=== PATIENT | male | born 1980 | race American Indian/Alaskan Native ===

== ENCOUNTER 2021-01-30 15:12 | Emergency (ER) | payer OTHER ==
[2021-01-30 15:20] VITALS: BP 111/67
[2021-01-30] MEDS ORDERED: IBUPROFEN 600 MG TAB PO ONE (17:56)
[2021-01-30] MEDS ORDERED: CYCLOBENZAPRINE 10 MG TAB PO ONE (17:56)
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
== END 2021-01-30 19:45 | disposition home or self-care (01) ==
LOC: ED 15:12
DX: M54.2 Cervicalgia (principal); M54.9 Dorsalgia, unspecified; Z79.899 Other long term (current) drug therapy; Z91.013 Allergy to seafood; V49.49XA Driver injured in collision with other motor vehicles in traffic accident, initial encounter; Y92.410 Unspecified street and highway as the place of occurrence of the external cause; Y93.89 Activity, other specified; Y99.8 Other external cause status
CPT/HCPCS: 72040; 72072